=== PATIENT | male | born 1995 | race Caucasian/White ===

== ENCOUNTER 2019-09-05 11:57 | Day surgery (SDC) | payer OTHER ==
[~2019-09-05 11:57] MED LIST: CEFAZOLIN 2 GM/D5W RTU 2 GM/50 ML RTUPB IV PRN
[2019-09-05] MEDS ORDERED: CEFAZOLIN 2 GM/D5W RTU 2 GM/50 ML RTUPB IV ONE (12:23)
[2019-09-05] MEDS ORDERED: ONDANSETRON HCL INJ/PF 4 MG/2 ML SDV ONE (15:16)
[2019-09-05] MEDS ORDERED: MIDAZOLAM 2 MG/2 ML INJ ONE (15:16)
[2019-09-05] MEDS ORDERED: FENTANYL CITRATE INJ/PF 100 MCG/2 ML AMPUL ONE ×2 (15:16→17:04)
[2019-09-05] MEDS ORDERED: DEXAMETHASONE SOD PHOSPHATE INJ 4 MG/1 ML VIAL ONE (15:16)
[2019-09-05] MEDS ORDERED: PROPOFOL INJ 200 MG/20 ML VIAL IV ONE (15:17)
[2019-09-05] MEDS ORDERED: BUPIVACAINE HCL 0.5 % INJ/PF 30 ML SDV ONE (15:17)
[2019-09-05] MEDS ORDERED: DIPHENHYDRAMINE HCL 50 MG/ML VIAL IV PRN (15:37)
[2019-09-05] MEDS ORDERED: PROMETHAZINE HCL INJ 25 MG/1 ML VIAL IV PRN (15:37)
[2019-09-05] MEDS ORDERED: MORPHINE SULFATE 10 MG/ML INJ IV PRN ×2 (15:37→16:53)
[2019-09-05] MEDS ORDERED: MEPERIDINE HCL/PF INJ 25 MG/1 ML DISP.SYRIN IV PRN (15:37)
[2019-09-05] MEDS ORDERED: FENTANYL CITRATE INJ/PF 100 MCG/2 ML AMPUL IV PRN ×2 (15:37)
--- NOTE | 2019-09-05 16:50 | Operative Report ---
Operative Report DATE OF SURGERY: 09/05/19 PREOPERATIVE DIAGNOSIS: Left fourth/fifth CMC dislocation, fourth metacarpal in tra-articular base fracture POSTOPERATIVE DIAGNOSIS: Same OPERATION: 1. Open reduction internal fixation intra-articular fourth metacarpal base fracture. 2. Open reduction internal fixation fourth/fifth CMC dislocation SURGEON: ALEC JOHNSTON ANESTHESIA: GA COMPLICATIONS: None ESTIMATED BLOOD LOSS: Minimal PROCEDURE: Indication for above procedure: 24-year-old male who sustained a fracture dislocation of his fourth/fifth CMC joint when he punched a immovable object. Patient was seen at [facility] where x-rays and CT scan were performed confirming fracture dislocation. Upon follow-up I discussed treatment option with the patient given his residual subluxation and fracture decision was made to treat with operative intervention. Risk and benefits were explained patient verbalized understanding consented for surgical procedure. Procedure in detail: Patient was seen and evaluated in the preoperative holding area. The LEFT upper extremity was initialized and marked. Patient received 2g of Ancef IV for bacterial prophylaxis. Patient was taken back to the operative room where transferred to the operative table and placed under general anesthesia. Once they were adequately anesthetized a nonsterile tourniquet was placed on the upper extremity. A surgical team debriefing was performed ensuring all instrumentation was available, the surgical procedure was discussed with possible concerns reviewed. The upper extremity was prepped with chlorhexidine and alcohol and draped in a sterile fashion. A timeout was done identifying correct patient, procedure and extremity everyone in attendance agree with this and verbalized no concerns. The extremity was exsanguinated the tourniquet was inflated to 250 mmHg. Longitudinal skin incision was made over the fourth/fifth CMC joint. Blunt dissection was performed. Dorsal ulnar sensory nerve was identified and retracted. EDC 5 and EDM were identified and retracted to further expose the CMC joint. Capsulotomy was made exposing the CMC joint and fracture of the fourth metacarpal. Sharp dissection was performed to decorticate the fracture. Fracture hematoma was irrigated. The fourth metacarpal was then reduced and provisionally fixed with a 0.045 K wire. C-arm fluoroscopy was obtained confirming reduction of the fracture. A Lovell 2.3 mm plate was then placed and fixated along the shaft with a bicortical screw. C-arm was obtained confirming appropriate placement of the plate a bicortical screw was then placed just distal to the articular surface and was drilled under fluoroscopy to ensure no intra-articular screw penetration. This was then secured to compress the articular surface. A second screw was then placed under fluoroscopy in the appropriate size locking screw. Fixation was then completed distally with 1 additional locking screw within the metacarpal base. A interfragmentary screw was placed along the oblique fracture line and secured. Previous K wire was removed. Fixation was then completed distally with additional bicortical screw. C-arm was obtained demonstrating acceptable reduction of the metacarpal fracture. The fourth and fifth CMC joints were then reduced under direct visualization a 0.045 K wire was placed obtaining fixation from the fifth metacarpal into the third metacarpal maintaining reduction of the CMC joint. A second 0.045 K wire was placed obliquely across the fifth metacarpal into the hamate and capitate further providing fixation. A small avulsion fracture of the hamate was identified and was secured with 3-0 Vicryl suture. C-arm was utilized to confirm reduction of the fracture. No evidence of residual dislocation of the fourth/fifth CMC joint. There is no evidence of malrotation with tenodesis or forearm squeeze. Wound was copiously irrigated with normal saline. Wound was injected with 30 cc of 0.5% ropivacaine without epinephrine. Periosteum and dorsal interossei fascia was closed over the plate providing additional coverage between the plate and overlying extensor tendons. Tourniquet was then deflated. Any peripheral bleeding was controlled with bipolar cautery until wound was dry. Subcutaneous tissues were closed with interrupted 4-0 Monocryl suture. Skin was closed with interrupted horizontal mattress 3-0 nylon suture. Wound was dressed with Xeroform 4 4 the patient was placed in a ulnar gutter splint immobilizing the MP joints of the fourth and fifth digits, IP joints were left free. Sponge counts, instrument counts, needle counts were correct. Patient was then awoken from anesthesia. Transferred from the operating room table to the operating room stretcher. There was no intraoperative complications patient tolerated procedure well stable to PACU. Postop plan: Patient will follow in the office in 2 weeks for wound check we will obtain x- rays at that time. Patient may be transition to a fracture brace and begin digit range of motion. Plan will be for pin removal 6 weeks postoperatively.
[2019-09-05] MEDS ORDERED: ONDANSETRON HCL INJ/PF 4 MG/2 ML SDV IV PRN (16:53)
[2019-09-05] MEDS ORDERED: OXYCODONE-ACETAMINOPHEN 5-325 MG TABLET PO PRN (16:53)
[2019-09-05] MEDS ORDERED: MEPERIDINE HCL/PF INJ 25 MG/1 ML DISP.SYRIN ONE (16:54)
[2019-09-05] MEDS: FENTANYL CITRATE INJ/PF 100 MCG/2 ML AMPUL IV PRN ×4 (17:00→17:15)
--- NOTE | 2019-09-05 17:12 | RADIOLOGY REPORT (SQ) ---
EXAM DESCRIPTION: NO CHG FLUORO; HAND LEFT 3 VIEWS IMAGES COMPLETED DATE/TIME: 09/05/2019 5:00 pm REASON FOR STUDY: ORIF L HAND COMPARISON: None. FLUOROSCOPY TIME: 46 seconds 4 Images saved to PACS LIMITATIONS: None. PROCEDURE: ORIF left hand FINDINGS: Images from fluoro document placement of a dorsal compression plate and a couple of pins. IMPRESSION: ORIF left hand. Refer to operative note for further information. COMMENT: PQRS 6045F: Fluoroscopy time of the procedure is documented in the report. TECHNICAL DOCUMENTATION: JOB ID: [id number] 2010 [employer]- All Rights Reserved Reading location - IP/workstation name: [email or web address]
--- NOTE | 2019-09-05 17:12 | RADIOLOGY REPORT (SQ) ---
EXAM DESCRIPTION: NO CHG FLUORO; HAND LEFT 3 VIEWS IMAGES COMPLETED DATE/TIME: 09/05/2019 5:00 pm REASON FOR STUDY: ORIF L HAND COMPARISON: None. FLUOROSCOPY TIME: 46 seconds 4 Images saved to PACS LIMITATIONS: None. PROCEDURE: ORIF left hand FINDINGS: Images from fluoro document placement of a dorsal compression plate and a couple of pins. IMPRESSION: ORIF left hand. Refer to operative note for further information. COMMENT: PQRS 6045F: Fluoroscopy time of the procedure is documented in the report. TECHNICAL DOCUMENTATION: JOB ID: [id number] 2010 [employer]- All Rights Reserved Reading location - IP/workstation name: [email or web address]
[2019-09-05] MEDS ORDERED: OXYCODONE-ACETAMINOPHEN 5-325 MG TABLET ONE (17:57)
[2019-09-05 18:53] VITALS: BP 145/100
== END 2019-09-05 19:03 | disposition home or self-care (01) ==
LOC: OROUT 11:57
PROVIDERS: ATTEND Orthopaedic Surgery
DX: S62.315B Displaced fracture of base of fourth metacarpal bone, left hand, initial encounter for open fracture (principal); S63.055A Dislocation of other carpometacarpal joint of left hand, initial encounter; W22.09XA Striking against other stationary object, initial encounter; M79.642 Pain in left hand
CPT/HCPCS: 87635; 73130; 26615; 26685 ×2; J2250; J3490; J1100; J3010; J2175; J2405; J2704; J0690; C9803; 01830; C1713